=== PATIENT | male | born 1950 | race Caucasian/White ===

== ENCOUNTER 2018-06-02 15:16 | Emergency (ER) | payer MEDICARE ==
[~2018-06-02] VITALS: Wt 81.6 kg
--- NOTE | ~2018-06-02 | EKG ---
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
--- NOTE | ~2018-06-02 | EKG ---
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
--- NOTE | ~2018-06-02 | EKG ---
[place], [place] ELECTROCARDIOGRAM REPORT NAME: STEPHANIE MOSQUEDA UNIT #: [id number] ROOM: DOCTOR: EPIPHANY DRAFT REPORT BIRTHDATE: [birth year] [facility] Test Date: 2018-06-02 Test Time: 20:34:54 Pat Name: STEPHANIE MOSQUEDA Department: ER Room: 9 Gender: M It Operations Analyst: Orin Campa : 1950 Requested By: MADELYN LONGORIA Order Number: [id number] Reading MD: Blade Galo MD Measurements Intervals [place] Rate: 62 P: 0 IN: 197 QRS: -74 QRSD: 185 T: 127 QT: 512 QTc: 520 Interpretive Statements Atrial-sensed ventricular-paced complexes No further analysis attempted due to paced rhythm Electronically Signed On 06-03-2018 8:29:27 PST by Blade Galo MD CM:EKGRPT:ELECTROCARDIOGRAM REPORT [id number] 0829 MADELYN LONGORIA DO EPIPHLINDA DRAFT REPORT MADELYN LONGORIA DO
[~2018-06-02 15:16] MED LIST: BACTRIM DS 8001 TA1 PO; BACTROBAN CREAM15 GM T; KEFLEX500 M1 PO
[2018-06-02 16:02] LABS: BASO % 0.3 % (0.0-1.0); EOS # 0.1 10*3/uL (0.0-0.4); EOS % 1.6 % (1.0-4.0); HEMATOCRIT 42.6 % (42.0-52.0); HEMOGLOBIN 14.8 g/dl (14.0-18.0); LYMPH # 1.9 10*3/uL (1.3-4.4); LYMPH % 32.2 % (27.0-41.0); MEAN CELL VOLUME 91.8 fl (80.0-94.0); MEAN CORPUSCULAR HGB 31.9 pg (27.0-31.0); MEAN CORPUSCULAR HGB CONC 34.7 g/dl (33.0-37.0); MEAN PLATELET VOLUME 10.3 fl (9.6-12.3); MONO # 0.5 10*3/uL (0.1-1.0); MONO % 8.3 % (3.0-9.0); NEUT # 3.3 10*3/uL (2.3-7.9); NEUT % 57.3 % (47.0-73.0); PLATELET COUNT AUTOMATED 121 10*3/uL (130-400); RED BLOOD COUNT 4.64 10*6/uL (4.50-5.90); RED CELL DISTRI WIDTH 12.6 % (0-14.5); WHITE BLOOD COUNT 5.8 10*3/uL (4.8-10.8)
[2018-06-02 16:10] LABS: ACT PARTIAL THROMBO TIME 21.9 SECONDS (20.8-31.5); INTERNATIONAL NORM RATIO 0.9 (2.0-3.5)
[2018-06-02 16:18] LABS: ALBUMIN 3.6 gm/dl (3.1-4.5); ALKALINE PHOSPHATASE 87 U/L (45-117); BUN 21 mg/dl (7-24); CHLORIDE 108 mmol/L (98-107); CREATININE 1.11 mg/dL (0.70-1.30); POTASSIUM 4.1 mmol/L (3.5-5.1); SGOT/AST 18 IU/L (3-35); SGPT/ALT 30 U/L (12-78); SODIUM 140 mmol/L (136-145); TOTAL PROTEIN 6.8 gm/dL (6.4-8.2)
[2018-06-02 16:19] LABS: TROPONIN I 0.037 ng/ml (<0.045)
== END 2018-06-02 20:49 | disposition left against medical advice (07) ==
LOC: ED 15:16
PROVIDERS: Internal Medicine
DX: I63.9 Cerebral infarction, unspecified (principal); R79.89 Other specified abnormal findings of blood chemistry; Z91.030 Bee allergy status